=== PATIENT | female | born 1960 | race Caucasian/White ===

== ENCOUNTER 2016-07-08 12:19 | Emergency (ER) | payer MEDICAID ==
--- NOTE | 2016-07-08 12:28 | ER Document Report ---
ED Medical Screen (RME) - General Stated Complaint: ABDOMINAL PAIN Mode of Arrival: Wheelchair Information source: Patient Notes: Patient presents to the emergency department with complaints of LLQ abdominal pain for the past 4 days. Reports history of ovarian cysts reports it feels the same. Reports vomited yesterday. No pain with void. I have greeted and performed a rapid initial assessment of this patient. A comprehensive ED assessment and evaluation of the patient, analysis of test results and completion of the medical decision making process will be conducted by additional ED providers. TRAVEL OUTSIDE OF THE [place] IN LAST 30 DAYS: No - Related Data Allergies/Adverse Reactions: aspirin [Aspirin] Allergy (Verified 10/31/10 12:23) Past Medical History Neurological Medical History: Reports: Hx Migraine - Immunizations Hx Diphtheria, Pertussis, Tetanus Vaccination: Yes
[2016-07-08 13:13] LABS: APPEARANCE,URINE CLEAR; BILIRUBIN,URINE NEGATIVE (NEGATIVE); GLUCOSE, URINE NEGATIVE (NEGATIVE); KETONES,URINE NEGATIVE (NEGATIVE); LEUKOCYTE ESTERASE,URINE NEGATIVE (NEGATIVE); NITRITE,URINE NEGATIVE (NEGATIVE); PROTEIN,URINE NEGATIVE (NEGATIVE); URINE SPECIFIC GRAVITY 1.004; UROBILINOGEN,URINE NEGATIVE mg/dL (<2.0)
[2016-07-08 13:14] LABS: ABSOLUTE EOSINOPHILS # (AUTO) 0.1 10^3/uL (0.0-0.6); ABSOLUTE LYMPHOCYTES (AUTO) 1.3 10^3/uL (0.5-4.7); ABSOLUTE MONOCYTES (AUTO) 0.4 10^3/uL (0.1-1.4); ABSOLUTE NEUT (AUTO) 1.6 10^3/uL (1.7-8.2); BASOPHILS % (AUTO) 0.6 % (0-2); EOSINOPHILS % (AUTO) 2.2 % (0-6); HEMATOCRIT 45.3 % (36.0-47.0); HEMOGLOBIN 15.6 g/dL (12.0-15.5); HGB HCT DIFFERENCE 1.5; LYMPHOCYTES % (AUTO) 38.7 % (13-45); MEAN CORPUSCULAR HEMOGLOBIN 31.2 pg (27.0-33.4); MEAN CORPUSCULAR HGB CONC 34.5 g/dL (32.0-36.0); MEAN CORPUSCULAR VOLUME 91 fl (80-97); MONOCYTES % (AUTO) 11.9 % (3-13); RED CELL DISTRIBUTION WIDTH 12.9 % (11.5-14.0); SEGMENTED NEUTROPHILS % (AUTO) 46.6 % (42-78); WHITE BLOOD COUNT 3.4 10^3/uL (4.0-10.5)
[2016-07-08 13:24] LABS: ALANINE AMINOTRANSFERASE 19 U/L (9-52); ALBUMIN 4.7 g/dL (3.5-5.0); ALKALINE PHOSPHATASE 90 U/L (38-126); ANION GAP 11 (5-19); ASPARTATE AMINO TRANSFERASE 17 U/L (14-36); BILIRUBIN,TOTAL 0.6 mg/dL (0.2-1.3); BLOOD UREA NITROGEN 16 mg/dL (7-20); CALCIUM 10.5 mg/dL (8.4-10.2); CARBON DIOXIDE 28 mmol/L (22-30); CHLORIDE 105 mmol/L (98-107); CREATININE RESULT 0.61 mg/dL (0.52-1.25); GLUCOSE 98 mg/dL (75-110); LIPASE 273.3 U/L (23-300); POTASSIUM 4.7 mmol/L (3.6-5.0); SODIUM 143.7 mmol/L (137-145); TOTAL PROTEIN 7.5 g/dL (6.3-8.2)
[2016-07-08] MEDS ORDERED: NORMAL SALINE 1000 ML 1,000 ML IV ONE ×2 (15:26)
[2016-07-08] MEDS ORDERED: MORPHINE SULFATE 10 MG/ML INJ IV ONE (15:27)
[2016-07-08] MEDS ORDERED: ONDANSETRON HCL INJ/PF 4 MG/2 ML SDV IV ONE (15:27)
--- NOTE | 2016-07-08 15:42 | ER Document Report ---
ED GI/ - General Time seen by provider: 15:24 Mode of Arrival: Wheelchair Information source: Patient TRAVEL OUTSIDE OF THE [place] IN LAST 30 DAYS: No - HPI Patient complains to provider of: Abdominal pain, Vomiting Onset: Other - 4 days Timing/Duration: Intermittent Quality of pain: Sharp, Throbbing Severity at maximum: Moderate Severity in ED: Moderate Pain Level: 4 Location: LUQ, LLQ Vaginal bleeding (Compared to normal period): None Associated symptoms: Nausea, Vomiting Exacerbated by: Movement, Walking Relieved by: Denies Similar symptoms previously: Yes Recently seen / treated by doctor: No <ANN POLO - Last Filed: 07/08/16 19:12> <LEX DUNNE - Last Filed: 07/08/16 21:01> - General Chief Complaint: Abdominal Pain Stated Complaint: ABDOMINAL PAIN Notes: 56-year-old female presents to ED for left lower and mid quadrant abdomen pain for the last 4 days. She states she's had some nausea vomiting no vomiting today but has been nauseated. States she has a history of ovarian cyst but the ultrasound was unable to see the left ovary. (ANN POLO) - Related Data Allergies/Adverse Reactions: aspirin [Aspirin] Allergy (Verified 07/08/16 12:29) Past Medical History - General Information source: Patient - Social History Smoking Status: Current Every Day Smoker Cigarette use (# per day): Yes - pack per day Chew tobacco use (# tins/day): No Smoking Education Provided: Yes - acetaminophen Frequency of alcohol use: None Drug Abuse: None Occupation: none Lives with: Family Family History: Arthritis, CAD, DM, Hyperlipidemia, Hypertension, Thyroid Disfunction Patient has suicidal ideation: No Patient has homicidal ideation: No - Past Medical History Cardiac Medical History: Reports: None Pulmonary Medical History: Reports: None EENT Medical History: Reports: None Neurological Medical History: Reports: Hx Migraine Endocrine Medical History: Reports: None Renal/ Medical History: Reports: Hx Ovarian Cysts, Other - Kidney reflux Malignancy Medical History: Reports: None GI Medical History: Reports: None Musculoskeltal Medical History: Reports Hx Arthritis, Reports Hx Muscular Dystrophy, Reports Hx Musculoskeletal Deformity - Scoliosis, Reports Hx Musculoskeletal Trauma Skin Medical History: Reports None Psychiatric Medical History: Reports: None Traumatic Medical History: Reports: Hx Fractures - Left ankle Infectious Medical History: Reports: None Past Surgical History: Reports: Hx Kidney (Renal Surgery) - Kidney surgery as a child for reflux, Hx Tubal Ligation - Immunizations Immunizations up to date: Yes Hx Diphtheria, Pertussis, Tetanus Vaccination: Yes <ANN POLO - Last Filed: 07/08/16 19:12> Review of Systems - Review of Systems Constitutional: Recent illness EENT: No symptoms reported Cardiovascular: No symptoms reported Respiratory: No symptoms reported Gastrointestinal: Abdominal pain, Nausea, Vomiting Genitourinary: No symptoms reported Female Genitourinary: No symptoms reported Musculoskeletal: No symptoms reported Skin: No symptoms reported Hematologic/Lymphatic: No symptoms reported Neurological/Psychological: No symptoms reported -: Yes All other systems reviewed and negative <ANN POLO - Last Filed: 07/08/16 19:12> Physical Exam - Vital signs Interpretation: Normal - General General appearance: Appears well, Alert - HEENT Head: Normocephalic, Atraumatic Eyes: Normal Pupils: PERRL - Respiratory Respiratory status: No respiratory distress Chest status: Nontender Breath sounds: Normal Chest palpation: Normal - Cardiovascular Rhythm: Regular Heart sounds: Normal auscultation Murmur: No - Abdominal Inspection: Normal Distension: No distension Bowel sounds: Normal Tenderness: Tender - Left upper and lower quadrant, Guarding Organomegaly: No organomegaly - Back Back: Normal, Nontender - Extremities General upper extremity: Normal inspection, Nontender, Normal color, Normal ROM , Normal temperature General lower extremity: Normal inspection, Nontender, Normal color, Normal ROM , Normal temperature, Normal weight bearing. No: Penny's sign - Neurological Neuro grossly intact: Yes Cognition: Normal Orientation: AAOx4 [place] Coma Scale Eye Opening: Spontaneous [place] Coma Scale Verbal: Oriented Sp[place] Coma Scale Motor: Obeys Commands Lisandra Coma Scale Total: 15 Speech: Normal Motor strength normal: LUE, RUE, LLE, RLE Sensory: Normal - Psychological Associated symptoms: Normal affect, Normal mood - Skin Skin Temperature: Warm Skin Moisture: Dry Skin Color: Normal <ANN POLO - Last Filed: 07/08/16 19:12> Course - Laboratory Result Diagrams: 07/08/16 12:45 07/08/16 12:45 <ANN POLO - Last Filed: 07/08/16 19:12> - Laboratory Result Diagrams: 07/08/16 12:45 07/08/16 12:45 <LEX DUNNE - Last Filed: 07/08/16 21:01> - Re-evaluation Re-evalutation: 07/08/16 15:[address] De Souza concerning to her left abdominal pain and tenderness. We' ll order a CT abdomen and pelvis with IV and oral contrast. 07/08/16 19:16 Report given to Lex GRIFFIN. Patient is waiting a CT of the abdomen pelvis for her lower left abdominal pain. (ANN POLO) - Vital Signs Vital signs: Temp Pulse Resp BP Pulse Ox 97.9 F 89 18 148/95 H 97 07/08/16 12:29 07/08/16 12:29 07/08/16 12:29 07/08/16 12:29 07/08/16 12:29 - Laboratory Laboratory results interpreted by me: 07/08/16 07/08/16 12:45 12:45 WBC 3.4 L Hgb 15.6 H Absolute Neutrophils 1.6 L Calcium 10.5 H Discharge <ANN POLO - Last Filed: 07/08/16 19:12> <LEX DUNNE - Last Filed: 07/08/16 21:01> - Discharge Clinical Impression: Left lower quadrant pain Condition: Stable Disposition: HOME, SELF-CARE Additional Instructions: No noted abnormalities on your imaging and workup today. You are being treated for inflammation/infection in your large intestine. Take cipro and flagyl as directed, I recommend fluid diet for at least the next 1-2 days, take medications for symptoms if needed as directed. Follow up closely with your Primary Provider, please follow up for a colonoscopy screening exam Return to the ED for any concerning symptoms - fever, severe pain, bloody bowel movements, etc. Prescriptions: Ciprofloxacin HCl [Cipro 500 mg Tablet] 500 mg PO BID #14 tablet Hydrocodone/Acetaminophen [[place] 5-325 Tablet] 1 - 2 each PO Q4H PRN #15 tablet PRN Reason: Metronidazole [Flagyl 500 mg Tablet] 500 mg PO TID #30 tablet Ondansetron [Zofran Odt 4 mg Tablet] 1 - 2 tab PO Q4H PRN #15 tab.rapdis PRN Reason: For Nausea/Vomiting
[2016-07-08] MEDS ORDERED: HYDROMORPHONE HCL INJ/PF 2 MG/ML AMPULE IV ONE (19:43)
[2016-07-08] MEDS ORDERED: METRONIDAZOLE 500 MG TABLET PO ONE (20:58)
[2016-07-08] MEDS ORDERED: CIPROFLOXACIN HCL 500 MG TABLET PO ONE (20:58)
[2016-07-09 06:18] VITALS: BP 125/74
== END 2016-07-08 20:10 | disposition home or self-care (01) ==
LOC: ER 12:19
DX: R10.32 Left lower quadrant pain (principal); F17.210 Nicotine dependence, cigarettes, uncomplicated
CPT/HCPCS: 99284; 96374; 96375; 36415; 83690; 85025; 80053; 81001; 76830; 93976; 74177; J3490 ×2; J2270; J1170; J2405; J7030

== ENCOUNTER → 2016-08-22 | Outpatient (CLI) | payer MEDICAID | LOC: RAD 14:40 | PROVIDERS: ATTEND Physician Assistant | DX: S83.203A Other tear of unspecified meniscus, current injury, right knee, initial encounter (principal); X58.XXXA Exposure to other specified factors, initial encounter ==

== ENCOUNTER 2017-01-22 08:42 | Emergency (ER) | payer MEDICAID ==
--- NOTE | 2017-01-22 10:10 | ER Document Report ---
ED Fever - General Chief Complaint: Fever Stated Complaint: FEVER Time Seen by Provider: 01/22/17 10:04 Mode of Arrival: Stretcher Information source: Patient TRAVEL OUTSIDE OF THE [place] IN LAST 30 DAYS: No - HPI Patient complains to provider of: Fever, body aches, flank pain, nausea, vomiting Onset: Other - 4 days Onset/Duration: Persistent, Worse Quality of pain: Achy Severity: Moderate Pain Level: 3 Associated symptoms: Body/muscle aches, Chills, Fever, Nausea, Vomiting Similar symptoms previously: Yes Recently seen / treated by doctor: No Notes: Patient is a 56-year-old female who presents to the emergency room today complaining of fever of 103, body aches, flank pain, "kidney pain", nausea and vomiting, symptoms have been going on for the past 4 days and worsening, she reports a history of similar symptoms in October 2016 when she was admitted to [facility] for 10 days for acute renal failure - Related Data Allergies/Adverse Reactions: aspirin [Aspirin] Allergy (Verified 01/22/17 08:47) Past Medical History - General Information source: Patient - Social History Smoking Status: Current Every Day Smoker Chew tobacco use (# tins/day): No Frequency of alcohol use: None Drug Abuse: None Family History: Arthritis, CAD, DM, Hyperlipidemia, Hypertension, Thyroid Disfunction Neurological Medical History: Reports: Hx Migraine Renal/ Medical History: Reports: Hx Ovarian Cysts. Denies: Hx Peritoneal Dialysis Musculoskeltal Medical History: Reports Hx Arthritis, Reports Hx Muscular Dystrophy, Reports Hx Musculoskeletal Deformity - Scoliosis, Reports Hx Musculoskeletal Trauma Traumatic Medical History: Reports: Hx Fractures - Left ankle Past Surgical History: Reports: Hx Kidney (Renal Surgery) - Kidney surgery as a child for reflux, Hx Tubal Ligation - Immunizations Immunizations up to date: Yes Hx Diphtheria, Pertussis, Tetanus Vaccination: Yes Review of Systems - Review of Systems Constitutional: See HPI EENT: No symptoms reported Cardiovascular: No symptoms reported Respiratory: No symptoms reported Gastrointestinal: See HPI Genitourinary: See HPI Female Genitourinary: No symptoms reported Musculoskeletal: See HPI Skin: No symptoms reported Hematologic/Lymphatic: No symptoms reported Neurological/Psychological: No symptoms reported -: Yes All other systems reviewed and negative Physical Exam - Vital signs Vitals: Temp Pulse Resp BP Pulse Ox 98.7 F 110 H 18 118/63 95 01/22/17 08:47 01/22/17 08:47 01/22/17 08:47 01/22/17 08:47 01/22/17 08:47 Interpretation: Tachycardic - General General appearance: Appears well, Alert - HEENT Head: Normocephalic, Atraumatic Eyes: Normal Pupils: PERRL - Respiratory Respiratory status: No respiratory distress Chest status: Nontender Breath sounds: Normal Chest palpation: Normal - Cardiovascular Rhythm: Regular Heart sounds: Normal auscultation Murmur: No - Abdominal Inspection: Normal Distension: No distension Bowel sounds: Normal Tenderness: Nontender Organomegaly: No organomegaly - Back Back: CVA tenderness - Left greater than right - Extremities General upper extremity: Normal inspection, Nontender, Normal color, Normal ROM , Normal temperature General lower extremity: Normal inspection, Nontender, Normal color, Normal ROM , Normal temperature, Normal weight bearing. No: Penny's sign - Neurological Neuro grossly intact: Yes Cognition: Normal Orientation: AAOx4 [place] Coma Scale Eye Opening: Spontaneous [place] Coma Scale Verbal: Oriented [place] Coma Scale Motor: Obeys Commands Lisandra Coma Scale Total: 15 Speech: Normal Motor strength normal: LUE, RUE, LLE, RLE Sensory: Normal - Psychological Associated symptoms: Normal affect, Normal mood - Skin Skin Temperature: Warm Skin Moisture: Dry Skin Color: Normal Course - Re-evaluation Re-evalutation: 01/22/17 13:05 Lab and imaging findings were discussed with patient at bedside which are unremarkable, she is feeling much better and able to tolerate p.o. intake, symptoms likely viral related, patient will be discharged with instructions for follow-up in advised to return if any additional concerns, patient acknowledges understanding and agreement with this plan - Vital Signs Vital signs: Temp Pulse Resp BP Pulse Ox 98.8 F 110 H 29 H 126/73 H 95 01/22/17 12:48 01/22/17 08:47 01/22/17 13:00 01/22/17 12:31 01/22/17 13:00 - Laboratory Result Diagrams: 01/22/17 10:45 01/22/17 10:45 Laboratory results interpreted by me: 01/22/17 01/22/17 01/22/17 10:25 10:45 10:45 WBC 2.7 L RDW 14.3 H Seg Neuts % (Manual) 35 L Monocytes % (Manual) 32 H Abs Neuts (Manual) 1.0 L Sodium 135.9 L Creatinine 0.45 L Glucose 133 H Direct Bilirubin 0.6 H Lipase 18.3 L Urine Protein 100 H Urine Bilirubin MODERATE H Urine Urobilinogen 4.0 H Urine Ascorbic Acid 20 H - Diagnostic Test Radiology reviewed: Image reviewed, Reports reviewed - EKG Interpretation by Me EKG shows normal: Sinus rhythm Rate: Tachycardia Discharge - Discharge Clinical Impression: Nausea and vomiting Qualifiers: Vomiting type: unspecified Vomiting Intractability: non-intractable Qualified Code(s): R11.2 - Nausea with vomiting, unspecified Condition: Stable Disposition: HOME, SELF-CARE Instructions: Antinausea Medication ([facility]), Vomiting ([facility]), Intravenous (IV) Fluids ([facility]), Viral Syndrome ([facility]) Additional Instructions: Follow up with your primary care provider in one to 2 days. Return to the emergency room immediately if symptoms worsen or any additional concerns.
[2017-01-22] MEDS ORDERED: MORPHINE SULFATE 10 MG/ML INJ IV ONE ×2 (10:13→12:36)
--- NOTE | 2017-01-22 10:44 | RADIOLOGY REPORT (SQ) ---
EXAM DESCRIPTION: CHEST SINGLE VIEW COMPLETED DATE/TIME: 01/22/2017 10:30 am REASON FOR STUDY: diff breathing COMPARISON: 03/10/2013 EXAM PARAMETERS: NUMBER OF VIEWS: One view. TECHNIQUE: Single frontal radiographic view of the chest acquired. RADIATION DOSE: NA LIMITATIONS: None. FINDINGS: LUNGS AND PLEURA: No opacities, masses or pneumothorax. No pleural effusion. MEDIASTINUM AND HILAR STRUCTURES: No masses. Contour normal. HEART AND VASCULAR STRUCTURES: Heart normal in size. Normal vasculature. BONES: No acute findings. HARDWARE: None in the chest. OTHER: No other significant finding. IMPRESSION: NO ACUTE RADIOGRAPHIC FINDING IN THE CHEST. TECHNICAL DOCUMENTATION: JOB ID: [id number]
[2017-01-22] MEDS: NORMAL SALINE 1000 ML 1,000 ML IV PRN ×4 (10:51→12:44)
[2017-01-22 10:58] LABS: APPEARANCE,URINE SLIGHTLY-CLOUDY; BILIRUBIN,URINE MODERATE (NEGATIVE); GLUCOSE, URINE NEGATIVE (NEGATIVE); KETONES,URINE NEGATIVE (NEGATIVE); LEUKOCYTE ESTERASE,URINE NEGATIVE (NEGATIVE); NITRITE,URINE NEGATIVE (NEGATIVE); PROTEIN,URINE 100 mg/dL (NEGATIVE); URINE SPECIFIC GRAVITY 1.035
[2017-01-22 11:14] LABS: HEMOGLOBIN 14.6 g/dL (12.0-15.5); MEAN CORPUSCULAR HGB CONC 34.8 g/dL (32.0-36.0); RED BLOOD COUNT 4.69 10^6/uL (3.72-5.28); VENOUS BLOOD BASE EXCESS 0.7 mmol/L; VENOUS BLOOD HCO3 26.5 mmol/L (20-32); VENOUS BLOOD PCO2 46.2 mmHg (35-63); VENOUS BLOOD PH 7.38 (7.30-7.42); WHITE BLOOD COUNT 2.7 10^3/uL (4.0-10.5)
[2017-01-22 11:18] LABS: HEMATOCRIT 41.8 % (36.0-47.0); MEAN CORPUSCULAR HEMOGLOBIN 31.1 pg (27.0-33.4); MEAN CORPUSCULAR VOLUME 89 fl (80-97); RED CELL DISTRIBUTION WIDTH 14.3 % (11.5-14.0)
[2017-01-22 11:33] LABS: ALANINE AMINOTRANSFERASE 36 U/L (9-52); ALBUMIN 4.4 g/dL (3.5-5.0); ALKALINE PHOSPHATASE 114 U/L (38-126); ANION GAP 10 (5-19); ASPARTATE AMINO TRANSFERASE 22 U/L (14-36); BILIRUBIN,DIRECT 0.6 mg/dL (0.0-0.4); BILIRUBIN,TOTAL 0.8 mg/dL (0.2-1.3); BLOOD UREA NITROGEN 13 mg/dL (7-20); CALCIUM 9.9 mg/dL (8.4-10.2); CARBON DIOXIDE 26 mmol/L (22-30); CHLORIDE 100 mmol/L (98-107); CREATININE RESULT 0.45 mg/dL (0.52-1.25); GLUCOSE 133 mg/dL (75-110); LIPASE 18.3 U/L (23-300); POTASSIUM 3.6 mmol/L (3.6-5.0); SODIUM 135.9 mmol/L (137-145)
[2017-01-22 11:49] LABS: BAND NEUTROPHILS % (MANUAL) 3 % (3-5); BASOPHILS % (MANUAL) 1 % (0-2); EOSINOPHILS % (MANUAL) 0 % (0-6); LYMPHOCYTES % (MANUAL) 29 % (13-45); TOTAL CELLS COUNTED 100
[2017-01-22 11:52] LABS: ANISOCYTOSIS SLIGHT
[2017-01-22] MEDS ORDERED: ONDANSETRON HCL INJ/PF 4 MG/2 ML SDV IV ONE (12:36)
[2017-01-22] MEDS ORDERED: ONDANSETRON ODT 4 MG TAB (6 TAB/DSPK) PO PRN (13:05)
[2017-01-22 13:22] VITALS: BP 118/61
--- NOTE | 2017-01-22 21:01 | EKG REPORT ---
SEVERITY:- BORDERLINE ECG - SINUS TACHYCARDIA PROBABLE LEFT ATRIAL ABNORMALITY : Confirmed by: Erica Chaudhry MD 22-Jan-2017 21:01:16
== END 2017-01-22 13:20 | disposition home or self-care (01) ==
LOC: ER 08:42
DX: R11.2 Nausea with vomiting, unspecified (principal); R50.9 Fever, unspecified; M79.1 Myalgia; F17.200 Nicotine dependence, unspecified, uncomplicated
CPT/HCPCS: 93005; 96376; 99284; 96361; 96374; 96375; 36415; 87040; 87086; 83690; 85025; 80053; 81001; 82803; 83605; 71010; 93010; J2270; J2405; J7030

== ENCOUNTER 2017-03-15 18:39 | Emergency (ER) | payer MEDICAID ==
[2017-03-15 19:13] LABS: ABSOLUTE LYMPHOCYTES (AUTO) 1.3 10^3/uL (0.5-4.7); ABSOLUTE MONOCYTES (AUTO) 0.3 10^3/uL (0.1-1.4); ABSOLUTE NEUT (AUTO) 1.6 10^3/uL (1.7-8.2); BASOPHILS % (AUTO) 0.8 % (0-2); EOSINOPHILS % (AUTO) 1.4 % (0-6); HEMATOCRIT 42.3 % (36.0-47.0); HEMOGLOBIN 14.4 g/dL (12.0-15.5); HGB HCT DIFFERENCE 0.9; LYMPHOCYTES % (AUTO) 39.3 % (13-45); MEAN CORPUSCULAR HEMOGLOBIN 30.4 pg (27.0-33.4); MEAN CORPUSCULAR HGB CONC 34.1 g/dL (32.0-36.0); MEAN CORPUSCULAR VOLUME 89 fl (80-97); RED BLOOD COUNT 4.75 10^6/uL (3.72-5.28); RED CELL DISTRIBUTION WIDTH 14.4 % (11.5-14.0); SEGMENTED NEUTROPHILS % (AUTO) 48.5 % (42-78); WHITE BLOOD COUNT 3.2 10^3/uL (4.0-10.5)
--- NOTE | 2017-03-15 19:23 | RADIOLOGY REPORT (SQ) ---
EXAM DESCRIPTION: CHEST SINGLE VIEW COMPLETED DATE/TIME: 03/15/2017 7:13 pm REASON FOR STUDY: cough, sob COMPARISON: 01/22/2017. EXAM PARAMETERS: NUMBER OF VIEWS: One view. TECHNIQUE: Single frontal radiographic view of the chest acquired. RADIATION DOSE: NA LIMITATIONS: None. FINDINGS: LUNGS AND PLEURA: No opacities, masses or pneumothorax. No pleural effusion. MEDIASTINUM AND HILAR STRUCTURES: No masses. Contour normal. HEART AND VASCULAR STRUCTURES: Heart upper limits of normal in size. Normal vasculature. BONES: No acute findings. HARDWARE: None in the chest. OTHER: No other significant finding. IMPRESSION: NO ACUTE RADIOGRAPHIC FINDING IN THE CHEST. TECHNICAL DOCUMENTATION: JOB ID: [id number] [employer]- All Rights Reserved
[2017-03-15] MEDS ORDERED: LIDOCAINE 5% (700 MG) TRANSDERMAL ADH..PATCH TP ONE (19:30)
[2017-03-15] MEDS ORDERED: MORPHINE SULFATE IR 15 MG TABLET PO ONE (19:30)
[2017-03-15] MEDS ORDERED: IPRATROPIUM/ALBUTEROL 0.5-2.5 MG/3 ML AMPUL NEB ONE (19:33)
[2017-03-15] MEDS ORDERED: NORMAL SALINE 1000 ML 1,000 ML IV ONE (19:33)
[2017-03-15] MEDS ORDERED: DEXAMETHASONE 4 MG TABLET PO ONE (19:33)
--- NOTE | 2017-03-15 19:35 | ER Document Report ---
ED General - General Chief Complaint: Chest Pain Stated Complaint: CHEST PAIN Time Seen by Provider: 03/15/17 18:58 Notes: Patient is a 56-year-old female, chronic tobacco use, no other known medical problems who presents complaining of 3 days of sharp chest wall pain as well as difficulty breathing. Patient describes the pain in her chest is a constant, stabbing, severe pain to the left central chest radiating into her costophrenic angle. Patient is uncertain about worsens the pain but believes it is worsened by taking a deep breath and movement. She has not had a history of similar symptoms in the past. She denies any associated nausea, vomiting or diaphoresis. She has not done and try to improve her symptoms. She has not seen a primary care doctor regarding today's concerns. She denies a history of prior cardiac illness, DVT or pulmonary embolus. No history of aortic pathology or connective tissue disorders. TRAVEL OUTSIDE OF THE [place] IN LAST 30 DAYS: No - Related Data Allergies/Adverse Reactions: aspirin [Aspirin] Allergy (Verified 01/22/17 08:47) Past Medical History - General Information source: Patient - Social History Smoking Status: Current Every Day Smoker Frequency of alcohol use: None Drug Abuse: None Lives with: Spouse/Significant other Family History: Arthritis, CAD, DM, Hyperlipidemia, Hypertension, Thyroid Disfunction Patient has suicidal ideation: No Patient has homicidal ideation: No Neurological Medical History: Reports: Hx Migraine Renal/ Medical History: Reports: Hx Ovarian Cysts. Denies: Hx Peritoneal Dialysis Musculoskeltal Medical History: Reports Hx Arthritis, Reports Hx Muscular Dystrophy, Reports Hx Musculoskeletal Deformity - Scoliosis, Reports Hx Musculoskeletal Trauma Traumatic Medical History: Reports: Hx Fractures - Left ankle Past Surgical History: Reports: Hx Kidney (Renal Surgery) - Kidney surgery as a child for reflux, Hx Tubal Ligation - Immunizations Immunizations up to date: Yes Hx Diphtheria, Pertussis, Tetanus Vaccination: Yes Review of Systems - Review of Systems Notes: Constitutional: Negative for fever. HENT: Negative for sore throat. Eyes: Negative for visual changes. Cardiovascular: Positive for chest pain. Respiratory: Positive for shortness of breath. Gastrointestinal: Negative for abdominal pain, vomiting or diarrhea. Genitourinary: Negative for dysuria. Musculoskeletal: Negative for back pain. Skin: Negative for rash. Neurological: Negative for headaches, weakness or numbness. 10 point ROS negative except as marked above and in HPI. Physical Exam - Vital signs Vitals: Resp Pulse Ox 20 98 03/15/17 19:07 03/15/17 19:07 Interpretation: Tachycardic Notes: PHYSICAL EXAMINATION: GENERAL: Appears markedly stated age., Somewhat uncomfortable but no acute distress HEAD: Atraumatic, normocephalic. EYES: Pupils equal round and reactive to light, extraocular movements intact, sclera anicteric, conjunctiva are normal. ENT: nares patent, oropharynx clear without exudates. Moist mucous membranes. NECK: Normal range of motion, supple without lymphadenopathy LUNGS: Moderately diminished air movement throughout. Scattered wheezing at the bases bilaterally. HEART: Regular rate and rhythm without murmurs ABDOMEN: Soft, nontender, normoactive bowel sounds. No guarding, no rebound. No masses appreciated. EXTREMITIES: Normal range of motion, no pitting or edema. No cyanosis. NEUROLOGICAL: No focal neurological deficits. Moves all extremities spontaneously and on command. PSYCH: Normal mood, normal affect. SKIN: Warm, Dry, normal turgor, no rashes or lesions noted. Course - Re-evaluation Re-evalutation: 03/15/17 19:30 Presentation of chest pain, shortness of breath, and a reported fever at home in an otherwise well appearing patient. Low clinical suspicion for ACS given clinical history, exam, EKG without ST elevations or depressions, and negative initial troponin. Moreover the clinical history of a cough with associated fever is clinically inconsistent with ACS as etiology of her chest pain. PE is also somewhat worrisome given that patient reported a low-grade fever at 101 at home, has a sharp, unilateral chest pain that is worsened by movement and breathing and was tachycardic at time of initial presentation. D-dimer will be obtained to further evaluate. CXR without evidence of pneumothorax or pneumonia. No widened mediastinum. Aortic dissection also seems unlikely given history, symmetric pulses, CXR, and vitals. Blood pressures are symmetric bilaterally with less than 10 mmHg difference between left and right upper extremities obtained at the bedside myself. Will await D-dimer assay testing, symptomatically treat and reassess 03/15/17 20:22 D-dimer is normal. Patient appears symptomatically much improved after receiving nebulizers and steroids. She states she feels well and would like to go home. Suspect that likely the patient has had an exacerbation of her chronic COPD in the setting of a viral illness. Will send home with an albuterol inhaler with an AeroChamber. She is ready received dexamethasone in the emergency department. At this time will discharge with return precautions and follow-up recommendations. Verbal discharge instructions given a the bedside and opportunity for questions given. Medication warnings reviewed. Patient is in agreement with this plan and has verbalized understanding of return precautions and the need for primary care follow-up in the next 24-72 hours. - Vital Signs Vital signs: Temp Pulse Resp BP Pulse Ox 26 H 147/70 H 97 03/15/17 20:31 03/15/17 20:31 03/15/17 20:31 - Laboratory Result Diagrams: 03/15/17 19:00 03/15/17 19:00 Laboratory results interpreted by me: 03/15/17 03/15/17 19:00 19:00 WBC 3.2 L RDW 14.4 H Absolute Neutrophils 1.6 L Creatinine 0.50 L - Diagnostic Test Radiology reviewed: Image reviewed, Reports reviewed Radiology results interpreted by me: 03/15/17 19:34 Chest x-ray: No acute infiltrate or pneumothorax - EKG Interpretation by Me Additional EKG results interpreted by me: 03/15/17 19:34 Normal sinus rhythm. Rate 90. No ST elevations or depressions. QTC is 446. Discharge - Discharge Clinical Impression: Shortness of breath, Chest discomfort COPD (chronic obstructive pulmonary disease) Qualifiers: COPD type: unspecified COPD Qualified Code(s): J44.9 - Chronic obstructive pulmonary disease, unspecified Condition: Good Disposition: HOME, SELF-CARE Additional Instructions: You were seen for a a likely viral illness with associated COPD. Your workup does not suggest a heart attack, a clot in your lung, or any kind of problem with your aorta. However, it is very important that you return to the emergency department immediately if you began to have worsening difficulty breathing that does not respond to the albuterol that you were sent home with. Please also follow closely with your primary care physician. You should return to emergency department if you develop fever greater than 101, persistent cough, persistent vomiting, pass out, or any other symptoms that are concerning to you. Prescriptions: Benzonatate [Tessalon Perles 100 mg Capsule] 100 mg PO Q8HP PRN #40 capsule PRN Reason: Referrals: ROSA NEW MD [Primary Care Provider] - Follow up in 3-5 days
[2017-03-15 19:37] LABS: ANION GAP 11 (5-19); BLOOD UREA NITROGEN 12 mg/dL (7-20); CALCIUM 9.7 mg/dL (8.4-10.2); CARBON DIOXIDE 27 mmol/L (22-30); CHLORIDE 106 mmol/L (98-107); GLUCOSE 109 mg/dL (75-110); POTASSIUM 3.7 mmol/L (3.6-5.0); SODIUM 143.7 mmol/L (137-145)
[2017-03-15] MEDS ORDERED: ALBUTEROL SULFATE HFA (90 MCG/PUFF) 200 PUFF/8.5 GM MDI IH ONE (20:23)
[2017-03-15 20:34] VITALS: BP 147/70
--- NOTE | 2017-03-16 09:27 | EKG REPORT ---
SEVERITY:- ABNORMAL ECG - SINUS RHYTHM LEFT ATRIAL ABNORMALITY LAD, CONSIDER LAFB OR INFERIOR INFARCT : Confirmed by: Lavonne Issa 16-Mar-2017 09:26:52
== END 2017-03-15 20:34 | disposition home or self-care (01) ==
LOC: ER 18:39
DX: R07.89 Other chest pain (principal); J44.9 Chronic obstructive pulmonary disease, unspecified; R06.02 Shortness of breath; R05 Cough; R00.0 Tachycardia, unspecified; F17.200 Nicotine dependence, unspecified, uncomplicated; Z88.6 Allergy status to analgesic agent; Z82.49 Family history of ischemic heart disease and other diseases of the circulatory system
CPT/HCPCS: 93005; 94640; 99285; 96360; 36415; 85025; 80048; 84484; 85379; 71010; 93010; J3490 ×3; J7030; J7620

== ENCOUNTER 2017-06-09 19:15 | Emergency (ER) | payer MEDICAID ==
[2017-06-09] MEDS ORDERED: NORMAL SALINE 1000 ML 1,000 ML IV ONE (19:56)
--- NOTE | 2017-06-09 20:00 | ER Document Report ---
ED Medical Screen (RME) - General Chief Complaint: Fever Stated Complaint: FEVER Time Seen by Provider: 06/09/17 19:56 Mode of Arrival: Wheelchair Information source: Patient TRAVEL OUTSIDE OF THE [place] IN LAST 30 DAYS: No - HPI Patient complains to provider of: fever Onset: This morning - pt with c/o fever, chills, kidney pain, and generalized malaise for the past 1-2 days - Related Data Allergies/Adverse Reactions: aspirin [Aspirin] Allergy (Verified 06/09/17 19:17) Past Medical History Neurological Medical History: Reports: Hx Migraine Renal/ Medical History: Reports: Hx Ovarian Cysts. Denies: Hx Peritoneal Dialysis Musculoskeltal Medical History: Reports Hx Arthritis, Reports Hx Muscular Dystrophy, Reports Hx Musculoskeletal Deformity - Scoliosis, Reports Hx Musculoskeletal Trauma Traumatic Medical History: Reports: Hx Fractures - Left ankle Past Surgical History: Reports: Hx Kidney (Renal Surgery) - Kidney surgery as a child for reflux, Hx Tubal Ligation - Immunizations Immunizations up to date: Yes Hx Diphtheria, Pertussis, Tetanus Vaccination: Yes Physical Exam - Vital signs Vitals: Temp Pulse Resp BP Pulse Ox 98.2 F 93 16 92/50 L 93 06/09/17 19:33 06/09/17 19:33 06/09/17 19:33 06/09/17 19:33 06/09/17 19:33 Course - Vital Signs Vital signs: Temp Pulse Resp BP Pulse Ox 98.2 F 93 16 92/50 L 93 06/09/17 19:33 06/09/17 19:33 06/09/17 19:33 06/09/17 19:33 06/09/17 19:33
[2017-06-09 20:40] LABS: ALANINE AMINOTRANSFERASE 33 U/L (9-52); ALBUMIN 4.1 g/dL (3.5-5.0); ALKALINE PHOSPHATASE 92 U/L (38-126); ANION GAP 12 (5-19); ASPARTATE AMINO TRANSFERASE 25 U/L (14-36); BILIRUBIN,DIRECT 0.7 mg/dL (0.0-0.4); BLOOD UREA NITROGEN 15 mg/dL (7-20); CALCIUM 9.8 mg/dL (8.4-10.2); CARBON DIOXIDE 26 mmol/L (22-30); CHLORIDE 100 mmol/L (98-107); GLUCOSE 119 mg/dL (75-110); POTASSIUM 3.8 mmol/L (3.6-5.0); TOTAL PROTEIN 7.1 g/dL (6.3-8.2)
[2017-06-09 20:41] LABS: HEMATOCRIT 40.2 % (36.0-47.0); HEMOGLOBIN 13.8 g/dL (12.0-15.5); MEAN CORPUSCULAR HEMOGLOBIN 30.6 pg (27.0-33.4); MEAN CORPUSCULAR HGB CONC 34.2 g/dL (32.0-36.0); MEAN CORPUSCULAR VOLUME 89 fl (80-97); PLATELET COUNT 265 10^3/uL (150-450); RED CELL DISTRIBUTION WIDTH 13.1 % (11.5-14.0)
--- NOTE | 2017-06-09 20:42 | RADIOLOGY REPORT (SQ) ---
EXAM DESCRIPTION: CHEST PA/LAT COMPLETED DATE/TIME: 06/09/2017 8:24 pm REASON FOR STUDY: fever COMPARISON: 03/10/2013 EXAM PARAMETERS: NUMBER OF VIEWS: two views TECHNIQUE: Digital Frontal and Lateral radiographic views of the chest acquired. RADIATION DOSE: NA LIMITATIONS: none FINDINGS: LUNGS AND PLEURA: No opacities, masses or pneumothorax. No pleural effusion. MEDIASTINUM AND HILAR STRUCTURES: No masses or contour abnormalities. HEART AND VASCULAR STRUCTURES: Heart normal size. No evidence for failure. BONES: No acute findings. HARDWARE: None in the chest. OTHER: No other significant finding. IMPRESSION: NO SIGNIFICANT RADIOGRAPHIC FINDING IN THE CHEST. TECHNICAL DOCUMENTATION: JOB ID: [id number] [employer]- All Rights Reserved
[2017-06-09 20:54] LABS: ABSOLUTE LYMPHOCYTES# (MANUAL) 0.4 10^3/uL (0.5-4.7); ABSOLUTE MONOCYTES # (MANUAL) 0.4 10^3/uL (0.1-1.4); ABSOLUTE NEUTROPHILS# (MANUAL) 0.5 10^3/uL (1.7-8.2); BASOPHILS % (MANUAL) 0 % (0-2); EOSINOPHILS % (MANUAL) 0 % (0-6); LYMPHOCYTES % (MANUAL) 30 % (13-45); SEGMENTED NEUTROPHILS % (MAN) 38 % (42-78); TOTAL CELLS COUNTED 50
[2017-06-09 20:56] LABS: PLATELET COMMENT ADEQUATE; TOXIC GRANULATION SLIGHT
[2017-06-09 20:57] LABS: MONOCYTES % (MANUAL) 32 % (3-13)
[2017-06-09 20:58] LABS: WHITE BLOOD COUNT 1.3 10^3/uL (4.0-10.5)
--- NOTE | 2017-06-09 21:21 | ER Document Report ---
ED General - General Chief Complaint: Fever Stated Complaint: FEVER Time Seen by Provider: 06/09/17 19:56 Mode of Arrival: Wheelchair Notes: Patient is a 57-year-old female that comes emergency department for chief complaint of worsening pain in her right flank over the past few days, she states she started vomiting last night and vomited 3 times, she checked her temperature last night and found she had a fever of 102. She states she feels miserably land like she has "the flu". She states she had similar symptoms last summer and was found to have a kidney infection. She denies any particular areas of abdominal pain, denies history of kidney stones. Only past medical history reported is hypertension and COPD. TRAVEL OUTSIDE OF THE [place] IN LAST 30 DAYS: No - Related Data Allergies/Adverse Reactions: aspirin [Aspirin] Allergy (Verified 06/09/17 19:17) Past Medical History - General Information source: Patient - Social History Smoking Status: Current Every Day Smoker Chew tobacco use (# tins/day): No Frequency of alcohol use: Rare Drug Abuse: None Family History: Arthritis, CAD, DM, Hyperlipidemia, Hypertension, Thyroid Disfunction Patient has suicidal ideation: No Patient has homicidal ideation: No Neurological Medical History: Reports: Hx Migraine Renal/ Medical History: Reports: Hx Ovarian Cysts. Denies: Hx Peritoneal Dialysis Musculoskeltal Medical History: Reports Hx Arthritis, Reports Hx Muscular Dystrophy, Reports Hx Musculoskeletal Deformity - Scoliosis, Reports Hx Musculoskeletal Trauma Traumatic Medical History: Reports: Hx Fractures - Left ankle Past Surgical History: Reports: Hx Kidney (Renal Surgery) - Kidney surgery as a child for reflux, Hx Tubal Ligation - Immunizations Immunizations up to date: Yes Hx Diphtheria, Pertussis, Tetanus Vaccination: Yes Physical Exam - Vital signs Vitals: Temp Pulse Resp BP Pulse Ox 98.2 F 93 16 92/50 L 93 06/09/17 19:33 06/09/17 19:33 06/09/17 19:33 06/09/17 19:33 06/09/17 19:33 Course - Vital Signs Vital signs: Temp Pulse Resp BP Pulse Ox 98.2 F 93 16 92/50 L 93 06/09/17 19:33 06/09/17 19:33 06/09/17 19:33 06/09/17 19:33 06/09/17 19:33 - Laboratory Result Diagrams: 06/09/17 20:04 06/09/17 20:04 Laboratory results interpreted by me: 06/09/17 06/09/17 06/09/17 20:04 20:04 22:36 WBC 1.3 L* Seg Neuts % (Manual) 38 L Monocytes % (Manual) 32 H Abs Neuts (Manual) 0.5 L Abs Lymphs (Manual) 0.4 L Glucose 119 H Direct Bilirubin 0.7 H Urine Protein 30 H Urine Urobilinogen 4.0 H Discharge - Discharge Referrals: ROSA NEW MD [Primary Care Provider] - Follow up as needed
[2017-06-09] MEDS ORDERED: ONDANSETRON HCL INJ/PF 4 MG/2 ML SDV IV ONE (21:44)
[2017-06-09] MEDS ORDERED: MORPHINE SULFATE 10 MG/ML INJ IV ONE (21:44)
[2017-06-09] MEDS ORDERED: FENTANYL CITRATE INJ/PF 100 MCG/2 ML AMPUL IV ONE (22:21)
[2017-06-09 22:55] LABS: APPEARANCE,URINE SLIGHTLY-CLOUDY; BILIRUBIN,URINE NEGATIVE (NEGATIVE); GLUCOSE, URINE NEGATIVE (NEGATIVE); KETONES,URINE NEGATIVE (NEGATIVE); LEUKOCYTE ESTERASE,URINE NEGATIVE (NEGATIVE); NITRITE,URINE NEGATIVE (NEGATIVE); PROTEIN,URINE 30 mg/dL (NEGATIVE); URINE SPECIFIC GRAVITY 1.031
[2017-06-09 22:56] LABS: COLOR,URINE YELLOW
--- NOTE | 2017-06-09 23:47 | RADIOLOGY REPORT (SQ) ---
EXAM DESCRIPTION: CT LTD RENAL STONE PROTOCOL ON COMPLETED DATE/TIME: 06/09/2017 11:34 pm REASON FOR STUDY: right abd and flank pain, vomiting COMPARISON: 07/08/2016 TECHNIQUE: CT scan of the abdomen and pelvis performed without intravenous or oral contrast. Images reviewed with lung, soft tissue, and bone windows. Reconstructed coronal and sagittal MPR images revi ewed. All images stored on PACS. All CT scanners at this facility use dose modulation, iterative reconstruction, and/or weight based d osing when appropriate to reduce radiation dose to as low as reasonably achievable (ALARA). [facility]: Dose Right [facility]: CareDose [facility]: Dose Right [facility]: Teradose 4D [facility]: Smart [facility] RADIATION DOSE: CT Rad equipment meets quality standard of care and radiation dose reduction techniq ues were employed. CTDIvol: 5.1 mGy. DLP: 257 mGy-cm.mGy. LIMITATIONS: None. FINDINGS: LOWER CHEST: Right lung base atelectasis versus consolidation. No pleural effusion. NON-CONTRASTED LIVER, SPLEEN, ADRENALS: Evaluation limited by lack of IV contrast. The previously de scribed heterogeneous nodular density in the region of the left adrenal gland is again noted, and is not significantly changed. This lesion previously demonstrated layering internal increased attenuati on suggesting it to be on the basis of enteric contrast within a gastric diverticulum. . Incidental note is again made of a 2.6 cm simple cyst within the left hepatic lobe. PANCREAS: No masses. No peripancreatic inflammatory changes. GALLBLADDER: No identified stones by CT criteria. No inflammatory changes to suggest cholecystitis. RIGHT KIDNEY AND URETER: No suspicious masses. Assessment limited by lack of IV contrast. No signif icant calcifications. No hydronephrosis or hydroureter. Note is again made of scattered renal cyst s. LEFT KIDNEY AND URETER: No suspicious masses. Assessment limited by lack of IV contrast. No signifi cant calcifications. No hydronephrosis or hydroureter. AORTA AND RETROPERITONEUM: No aneurysm. No retroperitoneal masses or adenopathy. BOWEL AND PERITONEAL CAVITY: No obvious masses or inflammatory changes. No free fluid. APPENDIX: Normal. PELVIS, BLADDER, AND ABDOMINAL WALL:No abnormal masses. No free fluid. Bladder normal. BONES: No significant findings. OTHER: No other significant finding. IMPRESSION: Stable CT appearance of the abdomen and pelvis. No evidence of urolithiasis or acute in tra-abdominal inflammatory process. Right lung base pulmonary opacities are nonspecific, but may rep resent a developing pneumonitis. COMMENT: Quality ID # [id number]: Final reports with documentation of one or more dose reduction techniques (e.g., Automated exposure control, adjustment of the mA and/or kV according to patient size, use of iterative reconstruction technique) TECHNICAL DOCUMENTATION: JOB ID: [id number] [employer]- All Rights Reserved
[2017-06-10] MEDS ORDERED: LEVOFLOXACIN 750 MG TABLET PO ONE (00:07)
--- NOTE | 2017-06-10 00:13 | ER Document Report ---
ED General - General Chief Complaint: Fever Stated Complaint: FEVER Time Seen by Provider: 06/09/17 19:56 Mode of Arrival: Wheelchair Notes: Patient is a 57-year-old female comes emergency department for chief complaint of 2 days of generalized weakness and body aches, intermittent cough, and most specifically back pain on her right side. She states she had a fever last night when she checked, it was 102, she has been taking Tylenol since. She denies difficulty breathing, chest pain, abdominal pain. Past medical history of COPD, she smokes, she takes blood pressure medications, she also states she had repair for kidney reflux as a child. TRAVEL OUTSIDE OF THE [place] IN LAST 30 DAYS: No - Related Data Allergies/Adverse Reactions: aspirin [Aspirin] Allergy (Verified 06/09/17 19:17) Past Medical History - General Information source: Patient - Social History Smoking Status: Current Every Day Smoker Chew tobacco use (# tins/day): No Smoking Education Provided: Yes - <3 min Frequency of alcohol use: Rare Drug Abuse: None Lives with: Family Family History: Arthritis, CAD, DM, Hyperlipidemia, Hypertension, Thyroid Disfunction Patient has suicidal ideation: No Patient has homicidal ideation: No - Past Medical History Cardiac Medical History: Reports: Hx Hypertension Pulmonary Medical History: Reports: Hx COPD Neurological Medical History: Reports: Hx Migraine Renal/ Medical History: Reports: Hx Ovarian Cysts. Denies: Hx Peritoneal Dialysis Musculoskeltal Medical History: Reports Hx Arthritis, Reports Hx Muscular Dystrophy, Reports Hx Musculoskeletal Deformity - Scoliosis, Reports Hx Musculoskeletal Trauma Traumatic Medical History: Reports: Hx Fractures - Left ankle Past Surgical History: Reports: Hx Kidney (Renal Surgery) - Kidney surgery as a child for reflux, Hx Tubal Ligation - Immunizations Immunizations up to date: Yes Hx Diphtheria, Pertussis, Tetanus Vaccination: Yes Review of Systems - Review of Systems Constitutional: See HPI EENT: No symptoms reported Cardiovascular: No symptoms reported Respiratory: See HPI Gastrointestinal: See HPI Genitourinary: See HPI Female Genitourinary: No symptoms reported Musculoskeletal: No symptoms reported Skin: No symptoms reported Hematologic/Lymphatic: No symptoms reported Neurological/Psychological: No symptoms reported Physical Exam - Vital signs Vitals: Temp Pulse Resp BP Pulse Ox 98.2 F 93 16 92/50 L 93 06/09/17 19:33 06/09/17 19:33 06/09/17 19:33 06/09/17 19:33 06/09/17 19:33 - General General appearance: Other - Patient slightly disheveled in appearance although she is easily arousable, conversational, oriented, cooperative - HEENT Head: Normocephalic, Atraumatic Eyes: Normal Conjunctiva: Normal Extraocular movements intact: Yes Eyelashes: Normal Pupils: PERRL Nasal: Normal Mouth/Lips: Normal Mucous membranes: Normal Pharynx: Normal Neck: Normal - Respiratory Respiratory status: No respiratory distress. No: Respiratory distress, Labored , Tachypnea Breath sounds: Decreased air movement - Very minimally decreased bilateral air movement, no wheezing, no rhonchi or rales, Nonproductive cough. No: Wheezing - Cardiovascular Rhythm: Regular. No: Tachycardia Heart sounds: Normal auscultation, S1 appreciated, S2 appreciated - Abdominal Inspection: Normal Tenderness: Nontender - Back Back: Tender - There is tenderness generally in the right mid to lower back along the spine and in the CVA area, otherwise normal back exam, normal distal neurovascular exam - Extremities General upper extremity: Normal inspection, Nontender, Normal strength, Normal temperature General lower extremity: Normal inspection, Nontender, Normal strength, Normal temperature - Neurological Neuro grossly intact: Yes Cognition: Normal Orientation: AAOx4 Lisandra Coma Scale Eye Opening: Spontaneous Lisandra Coma Scale Verbal: Oriented Lisandra Coma Scale Motor: Obeys Commands [place] Coma Scale Total: 15 Speech: Normal Motor strength normal: LUE, RUE, LLE, RLE Sensory: Normal - Skin Skin Temperature: Warm Skin Moisture: Dry Skin Color: Normal Course - Re-evaluation Re-evalutation: Patient with borderline blood pressure, improved after IV fluids. Patient with some flank pain, nonspecific abdomen, she does have some congestion and cough on exam. Reported fever at home. CBC shows leukopenia with neutropenia. Patient does have consistent leukopenia on previous laboratory evaluations here as well. Chemistry unremarkable, urinalysis nonspecific. Because of flank pain , reported fever, discussed with patient, CAT scan will be ordered to rule out obstructive pathology or other intra-abdominal abnormality. CAT scan negative except for indication of right-sided pneumonia. With patient' s cough, body aches, pain on the same side, and reported fever I actually do suspect that she has pneumonia. Discussed with Dr. Curry, recommends discussion with hematology/oncology Dr. Lopez manager concrete. Spoke with Dr. Lopez. Discussed case. Does not recommend Neupogen or similar medication at this time, does recommend antibiotics, because patient wants to go home and vital signs are generally unremarkable along with her examination patient will be started on antibiotics, have close follow-up with him in the office along with her primary care, and is to have a low threshold to return if she worsens in any way. I discussed this with patient and family, they state satisfaction and agreement with this plan. - Vital Signs Vital signs: Temp Pulse Resp BP Pulse Ox 98.1 F 93 18 95/55 L 96 06/10/17 00:27 06/09/17 19:33 06/10/17 00:27 06/10/17 00:27 06/10/17 00:27 - Laboratory Result Diagrams: 06/09/17 20:04 06/09/17 20:04 Laboratory results interpreted by me: 06/09/17 06/09/17 06/09/17 20:04 20:04 22:36 WBC 1.3 L* Seg Neuts % (Manual) 38 L Monocytes % (Manual) 32 H Abs Neuts (Manual) 0.5 L Abs Lymphs (Manual) 0.4 L Glucose 119 H Direct Bilirubin 0.7 H Urine Protein 30 H Urine Urobilinogen 4.0 H Discharge - Discharge Clinical Impression: Cough, Flank pain Fever Qualifiers: Fever type: unspecified Qualified Code(s): R50.9 - Fever, unspecified Condition: Stable Disposition: HOME, SELF-CARE Additional Instructions: Your workup is most suggestive of a pneumonia as the cause of your symptoms. Take the Levaquin antibiotic as directed, take Tylenol or ibuprofen for your fever and body aches, drink plenty of fluids and rest. Follow-up closely with primary care and also please call the listed referral ( Dr. Lopez) for workup and management of leukopenia/neutropenia (low white blood cell counts as we discussed). Return immediately if you worsen in any way including difficulty breathing, fever that will not come down, confusion, severe abdominal pain, or any other concerning symptoms. Prescriptions: Levofloxacin [Levaquin 750 mg Tablet] 750 mg PO DAILY #5 tablet Forms: Treatment of Relative/Child Referrals: AVIS LOPEZ MD [ACTIVE STAFF] - 06/11/17
[2017-06-10 00:46] VITALS: BP 95/55
[2017-06-10] MEDS ORDERED: HYDROCODONE/ACETAMINOPHEN 5-325 MG (6 TAB/ER DISP) PO PRN (00:53)
== END 2017-06-10 01:09 | disposition home or self-care (01) ==
LOC: ER 19:15
DX: R05 Cough (principal); R50.9 Fever, unspecified; R10.9 Unspecified abdominal pain; R53.1 Weakness; M79.1 Myalgia; M54.9 Dorsalgia, unspecified; F17.200 Nicotine dependence, unspecified, uncomplicated
CPT/HCPCS: 99284; 96361; 96374; 96375; 36415; 87040; 87086; 85025; 87088; 80053; 81001; 87186; 71046; 76380; J3010; J2405; J7030; J3490

== ENCOUNTER 2017-09-18 19:58 | Emergency (ER) | payer MEDICAID ==
[2017-09-18 20:07] VITALS: BP 108/56
--- NOTE | 2017-09-18 20:30 | RADIOLOGY REPORT (SQ) ---
EXAM DESCRIPTION: KNEE RIGHT 4 VIEWS COMPLETED DATE/TIME: 09/18/2017 8:20 pm REASON FOR STUDY: Pain s/p fall/ injury COMPARISON: None. NUMBER OF VIEWS: Four views. TECHNIQUE: AP, lateral, and both oblique radiographic images acquired of the right knee. LIMITATIONS: None. FINDINGS: MINERALIZATION: Normal. BONES: No acute fracture or dislocation. No worrisome bone lesions. JOINT: No effusion. SOFT TISSUES: No soft tissue swelling. No radio-opaque foreign body. OTHER: No other significant finding. IMPRESSION: NO RADIOGRAPHIC EVIDENCE OF ACUTE INJURY. TECHNICAL DOCUMENTATION: JOB ID: [id number] [place]-72 2010 [employer]- All Rights Reserved Reading location - IP/workstation name: [email or web address]
[2017-09-18] MEDS ORDERED: HYDROCODONE/ACETAMINOPHEN 5-325 MG TABLET PO ONE (20:46)
--- NOTE | 2017-09-18 20:51 | RADIOLOGY REPORT (SQ) ---
EXAM DESCRIPTION: ANKLE RIGHT COMPLETE COMPLETED DATE/TIME: 09/18/2017 8:33 pm REASON FOR STUDY: Pain s/p fall/ injury COMPARISON: None. NUMBER OF VIEWS: Three views. TECHNIQUE: AP, lateral, and oblique radiographic images acquired of the right ankle. LIMITATIONS: None. FINDINGS: MINERALIZATION: Normal. BONES: No acute fracture or dislocation. No worrisome bone lesions. JOINTS: No effusions. SOFT TISSUES: No soft tissue swelling. No foreign body. OTHER: No other significant finding. IMPRESSION: No fracture. TECHNICAL DOCUMENTATION: JOB ID: [id number] [place]-72 2010 [employer]- All Rights Reserved Reading location - IP/workstation name: [email or web address]
[2017-09-18] MEDS ORDERED: HYDROCODONE/ACETAMINOPHEN 5-325 MG (6 TAB/ER DISP) PO PRN (20:57)
--- NOTE | 2017-09-18 21:05 | ER Document Report ---
ED General - General Chief Complaint: R knee and ankle injury Stated Complaint: FALL RIGHT ANKLE INJURY Time Seen by Provider: 09/18/17 20:39 TRAVEL OUTSIDE OF THE [place] IN LAST 30 DAYS: No - Related Data Allergies/Adverse Reactions: aspirin [Aspirin] Allergy (Verified 06/09/17 19:17) Past Medical History - Social History Smoking Status: Unknown if Ever Smoked Family History: Arthritis, CAD, DM, Hyperlipidemia, Hypertension, Thyroid Disfunction Patient has suicidal ideation: No Patient has homicidal ideation: No - Past Medical History Cardiac Medical History: Reports: Hx Hypertension Pulmonary Medical History: Reports: Hx COPD Neurological Medical History: Reports: Hx Migraine Renal/ Medical History: Reports: Hx Ovarian Cysts. Denies: Hx Peritoneal Dialysis Musculoskeltal Medical History: Reports Hx Arthritis, Reports Hx Muscular Dystrophy, Reports Hx Musculoskeletal Deformity - Scoliosis, Reports Hx Musculoskeletal Trauma Traumatic Medical History: Reports: Hx Fractures - Left ankle Past Surgical History: Reports: Hx Kidney (Renal Surgery) - Kidney surgery as a child for reflux, Hx Tubal Ligation - Immunizations Immunizations up to date: Yes Hx Diphtheria, Pertussis, Tetanus Vaccination: Yes Physical Exam - Vital signs Vitals: Temp Pulse Resp BP Pulse Ox 99.2 F 96 20 108/56 L 95 09/18/17 20:04 09/18/17 20:04 09/18/17 20:04 09/18/17 20:04 09/18/17 20:04 Course - Vital Signs Vital signs: Temp Pulse Resp BP Pulse Ox 99.2 F 96 20 108/56 L 95 09/18/17 20:04 09/18/17 20:04 09/18/17 20:04 09/18/17 20:04 09/18/17 20:04 Discharge - Discharge Clinical Impression: Knee sprain Qualifiers: Encounter type: initial encounter Involved ligament of knee: unspecified ligament Laterality: right Qualified Code(s): S83.91XA - Sprain of unspecified site of right knee, initial encounter Ankle sprain Qualifiers: Encounter type: initial encounter Involved ligament of ankle: other ligament Laterality: right Qualified Code(s): S93.491A - Sprain of other ligament of right ankle, initial encounter Condition: Stable Disposition: HOME, SELF-CARE Instructions: Use of Crutches ([facility]), Ice & Elevation ([facility]), Suspected Internal Knee Injury ([facility]), Sprained Ankle ([facility]), Knee Immobilizing Splint ([facility]) Additional Instructions: Use crutches or a walker or a wheelchair. We cannot rule out the possibility of ligament or meniscus damage to the knee. Keep leg elevated. Prescriptions: Hydrocodone/Acetaminophen [[place] 5-325 Tablet] 1 each PO Q4HP PRN #20 tablet PRN Reason: Referrals: KELLY RUFFIN PA [NO LOCAL MD] - 10/02/17
== END 2017-09-18 21:52 | disposition home or self-care (01) ==
LOC: ER 19:58
DX: S93.491A Sprain of other ligament of right ankle, initial encounter (principal); S83.91XA Sprain of unspecified site of right knee, initial encounter; X58.XXXA Exposure to other specified factors, initial encounter; I10 Essential (primary) hypertension; J44.9 Chronic obstructive pulmonary disease, unspecified; Z88.6 Allergy status to analgesic agent
CPT/HCPCS: 99283; 73610; 73564; L1830; L4350

== ENCOUNTER 2018-08-16 07:26 | Emergency (ER) | payer MEDICAID ==
[2018-08-16 07:34] VITALS: BP 147/70
--- NOTE | 2018-08-16 09:01 | ER Document Report ---
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 She often falls and has broken several toes due to her disease at this time she rolled it and is in severe pain. Patient is not a diabetic. Patient is able to bear weight on it but is in severe pain. Patient typically wears bilateral braces on her ankles but she takes them off at night and when she went to the bathroom she was not wearing them. No other complaints TRAVEL OUTSIDE OF THE [place] IN LAST 30 DAYS: No - Related Data Allergies/Adverse Reactions: aspirin [Aspirin] Allergy (Verified 08/16/18 07:28) Past Medical History - Social History Smoking Status: Current Every Day Smoker Frequency of alcohol use: None Drug Abuse: None Family History: Arthritis, CAD, DM, Hyperlipidemia, Hypertension, Thyroid Disfunction Patient has suicidal ideation: No Patient has homicidal ideation: No - Past Medical History Cardiac Medical History: Reports: Hx Hypertension Pulmonary Medical History: Reports: Hx COPD Neurological Medical History: Reports: Hx Migraine Renal/ Medical History: Reports: Hx Ovarian Cysts. Denies: Hx Peritoneal Dialysis Musculoskeletal Medical History: Reports Hx Arthritis, Reports Hx Muscular Dystrophy, Reports Hx Musculoskeletal Deformity - Scoliosis, Reports Hx Musculoskeletal Trauma Traumatic Medical History: Reports: Hx Fractures - Left ankle Past Surgical History: Reports: Hx Kidney (Renal Surgery) - Kidney surgery as a child for reflux, Hx Tubal Ligation - Immunizations Immunizations up to date: Yes Hx Diphtheria, Pertussis, Tetanus Vaccination: Yes Review of Systems - Review of Systems Constitutional: No symptoms reported EENT: No symptoms reported Cardiovascular: No symptoms reported Respiratory: No symptoms reported Gastrointestinal: No symptoms reported Genitourinary: No symptoms reported Female Genitourinary: No symptoms reported Musculoskeletal: See HPI Skin: No symptoms reported Hematologic/Lymphatic: No symptoms reported Neurological/Psychological: No symptoms reported Physical Exam - Vital signs Vitals: Temp Pulse Resp BP Pulse Ox 97.9 F 75 16 147/70 H 95 04/19/19 07:33 08/16/18 07:33 08/16/18 07:33 08/16/18 07:33 08/16/18 07:33 - Notes Notes: PHYSICAL EXAMINATION: Reviewed vital signs and charting by RN GENERAL: Alert, interacts well. No acute distress. HEAD: Normocephalic, atraumatic. EYES: Pupils equal and round. Extraocular movements intact. EXTREMITIES: Moves all 4 extremities spontaneously. Mild edema on the dorsal aspect of the left foot across the MTP in the first and second toes, tenderness to palpation NEUROLOGIC: Oriented and appropriate. Normal speech. PSYCH: Normal affect, normal mood. SKIN: Warm, dry, normal turgor. No rashes or lesions noted. Course - Re-evaluation Re-evalutation: 08/16/18 09:01 Overall well-appearing. Patient in acute pain will obtain x-ray left foot. 08/16/18 10:29 X-ray obtained of left ankle but did not her foot so x-ray of toes obtained. Ankle x-ray negative for fracture dislocation x-ray of toes negative for fracture dislocation. Soft tissue injury is complicating Zssgbjf-Ufqrr-Qtent syndrome she has limited range of motion. We will provide her with a boot and crutches. Stable for discharge. - Vital Signs Vital signs: Temp Pulse Resp BP Pulse Ox 97.9 F 75 16 147/70 H 95 08/16/18 07:33 08/16/18 07:33 08/16/18 07:33 08/16/18 07:33 08/16/18 07:33 Discharge - Discharge Clinical Impression: Injury of left foot Qualifiers: Encounter type: initial encounter Qualified Code(s): S99.922A - Unspecified injury of left foot, initial encounter Condition: Good Disposition: HOME, SELF-CARE Additional Instructions: Your x-ray does not show any acute fracture. You have a sprained ankle and foot injury. Keep the area elevated, apply ice 20 minutes every 2 hours, and use crutches as needed. You should take ibuprofen 600 mg every 6 hours as needed for pain. Please return if you have worsening pain and swelling, fever greater than 101, you notice spreading redness from the area, or have any other symptoms that are concerning to you. Please follow-up with orthopedic surgery if your symptoms have not improved in the next 2-3 weeks. Referrals: ROSA NEW MD [Primary Care Provider] - Follow up as needed KELLY HERRERA MD [ACTIVE STAFF] - Follow up as needed
--- NOTE | 2018-08-16 09:33 | RADIOLOGY REPORT (SQ) ---
EXAM DESCRIPTION: ANKLE LEFT COMPLETE COMPLETED DATE/TIME: 08/16/2018 9:14 am REASON FOR STUDY: fall COMPARISON: None. NUMBER OF VIEWS: Three views. TECHNIQUE: AP, lateral, and oblique radiographic images acquired of the left ankle. LIMITATIONS: None. FINDINGS: MINERALIZATION: Normal. BONES: Os sub fibularis. Otherwise, no acute fracture or bony abnormality seen. JOINTS: No effusions. SOFT TISSUES: No soft tissue swelling. No foreign body. OTHER: Radiopaque density overlying the left 1st proximal phalanx. There is question of a deformity of the proximal phalanx of the 5th toe. IMPRESSION: No acute fracture seen. TECHNICAL DOCUMENTATION: JOB ID: [id number] [place]-[id number] 2010 [employer]- All Rights Reserved Reading location - IP/workstation name: [email or web address]
--- NOTE | 2018-08-16 10:30 | RADIOLOGY REPORT (SQ) ---
EXAM DESCRIPTION: TOE LEFT COMPLETED DATE/TIME: 08/16/2018 10:04 am REASON FOR STUDY: pain/ecchymosis 4th-5th metatarsal COMPARISON: None. NUMBER OF VIEWS: Two views. TECHNIQUE: AP and oblique images acquired of the left toes. LIMITATIONS: None. FINDINGS: MINERALIZATION: Osteopenia. BONES: No acute fracture or dislocation. No worrisome bone lesions. JOINTS: No effusions. SOFT TISSUES: Soft tissue swelling about the lateral foot. There is a linear metallic foreign body a bout the left 2nd proximal phalanx. OTHER: No other significant finding. IMPRESSION: 1. No obvious fracture or dislocation of the left foot to 4th and 5th metatarsal pain. There is diffuse soft tissue swelling about the lateral left forefoot. Consider MRI to more sensiti vely evaluate for marrow edema or nondisplaced fracture in the setting of osteopenia. 2. Linear metallic foreign body about the left 2nd proximal phalanx of uncertain nature or significa nce. COMMENT: SITE OF TRAUMA/COMPLAINT MARKED/STAMP COMPLETED: YES. TECHNICAL DOCUMENTATION: JOB ID: [id number] [employer]- All Rights Reserved Reading location - IP/workstation name: [email or web address]
== END 2018-08-16 10:49 | disposition home or self-care (01) ==
LOC: ER 07:26
DX: S99.922A Unspecified injury of left foot, initial encounter (principal); W19.XXXA Unspecified fall, initial encounter; G60.0 Hereditary motor and sensory neuropathy; F17.200 Nicotine dependence, unspecified, uncomplicated; I10 Essential (primary) hypertension; J44.9 Chronic obstructive pulmonary disease, unspecified
CPT/HCPCS: 99283

== ENCOUNTER 2018-08-18 18:20 | Emergency (ER) | payer MEDICAID ==
[2018-08-18 18:44] VITALS: BP 156/84
== END 2018-08-19 07:00 | disposition left against medical advice (07) ==
LOC: ER 18:20
DX: Z53.21 Procedure and treatment not carried out due to patient leaving prior to being seen by health care provider (principal)

== ENCOUNTER → 2019-03-17 | Outpatient (CLI) | payer MEDICAID ==
--- NOTE | 2019-03-17 15:07 | RADIOLOGY REPORT (SQ) ---
EXAM DESCRIPTION: CHEST PA/LATERAL COMPLETED DATE/TIME: 03/17/2019 2:58 pm REASON FOR STUDY: PNEUMONIA, UNSPECIFIED ORGANISM COMPARISON: Two-view chest 06/09/2017 AP chest 03/15/2017, 01/22/2017, 03/10/2013 EXAM PARAMETERS: NUMBER OF VIEWS: two views TECHNIQUE: Digital Frontal and Lateral radiographic views of the chest acquired. RADIATION DOSE: NA LIMITATIONS: none FINDINGS: LUNGS AND PLEURA: No opacities, masses or pneumothorax. No pleural effusion. MEDIASTINUM AND HILAR STRUCTURES: No masses or contour abnormalities. HEART AND VASCULAR STRUCTURES: Heart normal size. No evidence for failure. BONES: No acute findings. HARDWARE: None in the chest. OTHER: No other significant finding. IMPRESSION: NO SIGNIFICANT RADIOGRAPHIC FINDING IN THE CHEST. TECHNICAL DOCUMENTATION: JOB ID: [id number] [employer]- All Rights Reserved Reading location - IP/workstation name: [email or web address]
== END ==
LOC: OD 14:47
PROVIDERS: ATTEND Family Medicine
DX: J18.9 Pneumonia, unspecified organism (principal)
CPT/HCPCS: 71046

== ENCOUNTER 2019-06-11 08:35 | Day surgery (SDC) | payer MEDICAID ==
[2019-06-11 08:59] LABS: HEMATOCRIT 40.9 % (36.0-47.0); HEMOGLOBIN 14.2 g/dL (12.0-15.5); MEAN CORPUSCULAR HEMOGLOBIN 30.5 pg (27.0-33.4); MEAN CORPUSCULAR HGB CONC 34.7 g/dL (32.0-36.0); MEAN CORPUSCULAR VOLUME 88 fl (80-97); PLATELET COUNT 324 10^3/uL (150-450); RED BLOOD COUNT 4.64 10^6/uL (3.72-5.28); RED CELL DISTRIBUTION WIDTH 13.8 % (11.5-14.0); WHITE BLOOD COUNT 3.8 10^3/uL (4.0-10.5)
[2019-06-11 09:12] LABS: PROTHROMBIN TIME 13.2 SEC (11.4-15.4)
[2019-06-11 09:14] LABS: PARTIAL THROMBOPLASTIN TIME 27.9 SEC (23.5-35.8)
[2019-06-11 09:17] LABS: BLOOD UREA NITROGEN 14 mg/dL (7-20)
[2019-06-11] MEDS ORDERED: MIDAZOLAM 2 MG/2 ML INJ ONE (10:46)
[2019-06-11] MEDS ORDERED: FENTANYL CITRATE INJ/PF 100 MCG/2 ML AMPUL ONE (10:46)
--- NOTE | 2019-06-11 13:20 | RADIOLOGY REPORT (SQ) ---
EXAM DESCRIPTION: CT BIOPSY BONE MARROW, NEEDLE COMPLETED DATE/TIME: 06/11/2019 11:31 am REASON FOR STUDY: DECREASED WHITE BLOOD CELL COUNT D72.819 DECREASED WHITE BLOOD CELL COUNT, UNSPEC IFIED COMPARISON: None. TECHNIQUE: CT guided biopsy of the right iliac crest bone marrow performed with conscious sedation. CT Fluoroscopy Time: 1.[address] scanners at this facility use dose modulation, iterative reconstruction, and/or weight based d osing when appropriate to reduce radiation dose to as low as reasonably achievable (ALARA). [facility]: Dose Right [facility]: CareDose [facility]: Dose Right [facility]: Teradose 4D [facility]: [employer] RADIATION DOSE: CT Rad equipment meets quality standard of care and radiation dose reduction techniq ues were employed. CTDIvol: 6.7 - 18.0 mGy. DLP: 424 mGy-cm.mGy. FINDINGS: After obtaining informed consent and explaining the risks and benefits of conscious sedati on,the patient agreed to the procedure. Prior to the procedure, a time out was performed to verify th e patient's identity and planned procedure. IV conscious sedation was administered and physician direction by the registered nurse using 1 millig bhupinder of Versed and 100 micrograms of fentanyl. Physiologic monitoring was provided before, during, an d after sedation. The total sedation time was 30 minutes. Documentation, face to face time, and procedure time the performing proceduralist, spent monitoring t he patient: [address] scanning was performed to localize the percutaneous site for the biopsy approach. After sterile skin prep and local lidocaine for skin and deep tissue anesthesia, a coaxial biopsy nee dle was used to obtain a bone marrow aspirate, and a bone marrow core of tissue. The biopsy tissue wa s received by Dr. Reyes's nurse to be sent out for evaluation. There were no immediate complication s. Pathology is pending at the time of dictation. IMPRESSION: CT GUIDED ASPIRATE AND CORE BIOPSY OF THE RIGHT POSTERIOR ILIAC CREST BONE MARROW PERFOR MED WITHOUT IMMEDIATE COMPLICATION. PATHOLOGY PENDING. IV CONSCIOUS SEDATION WITHOUT COMPLICATION. COMMENT: Quality ID 145: Final reports for procedures using fluoroscopy that document radiation exp osure indices, or exposure time and number of fluorographic images (if radiation exposure indices are not available) Patient medication list reviewed: Yes- Quality ID# [id number]:Eligible professional attests to documenting i n the medical record they obtained, updated, or reviewed the patient's current medications.. TECHNICAL DOCUMENTATION: JOB ID: [id number] Quality ID# [id number]: Final reports with documentation of one or more dose reduction techniques (e.g., Aut omated exposure control, adjustment of the mA and/or kV according to patient size, use of iterative r econstruction technique) 2010 [employer]- All Rights Reserved Reading location - IP/workstation name: [email or web address]
[2019-06-11 13:59] VITALS: BP 118/67
[2019-06-11] MEDS ORDERED: FENTANYL CITRATE INJ/PF 100 MCG/2 ML AMPUL IV ONE (15:00)
[2019-06-11] MEDS ORDERED: MIDAZOLAM 2 MG/2 ML INJ IV ONE (15:00)
--- NOTE | 2019-06-11 16:19 | RADIOLOGY REPORT (SQ) ---
EXAM DESCRIPTION: CT NEEDLE PLACEMENT COMPLETED DATE/TIME: 06/11/2019 11:31 am REASON FOR STUDY: DECREASED WHITE BLOOD CELL COUNT, BONE MARROW BIOPSY D72.819 DECREASED WHITE BLOO D CELL COUNT, UNSPECIFIED COMPARISON: None. TECHNIQUE: See same-day CT report RADIATION DOSE: mGy. LIMITATIONS: None. FINDINGS: See same-day CT report IMPRESSION: See same-day CT report COMMENT: Patient medication list reviewed:Yes- Quality ID# [id number]:Eligible professional attests to docu menting in the medical record they obtained, updated, or reviewed the patient's current medications.. Quality ID 145: Final reports for procedures using fluoroscopy that document radiation exposure aiden elizabeth, or exposure time and number of fluorographic images (if radiation exposure indices are not avail able) TECHNICAL DOCUMENTATION: JOB ID: [id number] Quality ID # [id number]: Final reports with documentation of one or more dose reduction techniques (e.g., A utomated exposure control, adjustment of the mA and/or kV according to patient size, use of iterative reconstruction technique) 2010 [employer]- All Rights Reserved Reading location - IP/workstation name: [email or web address]
== END 2019-06-12 12:50 | disposition home or self-care (01) ==
LOC: RAD 08:35
PROVIDERS: ATTEND Internal Medicine
DX: D72.819 Decreased white blood cell count, unspecified (principal); E78.00 Pure hypercholesterolemia, unspecified; E78.5 Hyperlipidemia, unspecified
CPT/HCPCS: 36415; 84520; 82565; 85027; 85610; 85730; 38221; 77012; J2250; J3010